=== PATIENT | female | born 1960 | race Caucasian/White ===

== ENCOUNTER 2019-12-20 03:32 | Emergency (ER) | payer OTHER ==
[~2019-12-20] VITALS: Ht 172.7 cm; Wt 75.0 kg
[2019-12-20] MEDS ORDERED: NEURONTIN300 MG/CAP PO (04:02)
[2019-12-20] MEDS ORDERED: PROMETHEGAN25 MG RC (04:02)
[2019-12-20] MEDS ORDERED: ONDANSETRON ODT8 MG PO (04:02)
[2019-12-20] MEDS ORDERED: SYNTHROID0.075 MG PO (04:03)
[2019-12-20] MEDS ORDERED: MORPHINE S100 MG/5 M PO (04:03)
[2019-12-20] MEDS ORDERED: LIOTHYRONINE SO5 MCG PO (04:03)
[2019-12-20 04:38] LABS: HEMATOCRIT 45.3 % (37.0-47.0); HEMOGLOBIN 15.3 g/dL (12.5-16.0); MEAN CELL VOLUME 92 fl (78-100); MEAN CORPUSCULAR HEMOGLOBIN 31 pg (27-31); MEAN CORPUSCULAR HGB CONC 34 g/dL (33-37); MEAN PLATELET VOLUME 10.9 fl (7.4-10.4); PLATELET COUNT 286 K/mm3 (130-400); RED BLOOD COUNT 4.94 M/mm3 (4.10-5.30); RED CELL DISTRIBUTION WIDTH 15.1 % (11.5-14.5); WHITE BLOOD COUNT 9.2 K/mm3 (4.8-10.8)
[2019-12-20 04:42] LABS: POTASSIUM 3.7 mmol/L (3.5-5.1)
[2019-12-20 04:43] LABS: CALCIUM 9.6 mg/dL (8.3-10.5)
[2019-12-20 04:53] LABS: LYMPHOCYTE 13 % (20-51); MONOCYTE 4 % (3-10); NEUTROPHILS 83 % (42-75)
[2019-12-20 06:46] VITALS: BP 142/75
== END 2019-12-20 06:38 | disposition home or self-care (01) ==
LOC: ED 03:32
PROVIDERS: Family Medicine
DX: R11.2 Nausea with vomiting, unspecified (principal); C18.9 Malignant neoplasm of colon, unspecified
CPT/HCPCS: J2060; J2405; J2765; J7030

== ENCOUNTER → 2020-05-06 | Outpatient (CLI) | payer OTHER ==
[~2020-05-06] MED LIST: LIOTHYRONINE SO5 MCG PO; MORPHINE S100 MG/5 M PO; NEURONTIN300 MG/CAP PO; ONDANSETRON ODT8 MG PO; PROMETHEGAN25 MG RC; SYNTHROID0.075 MG PO
[2020-05-06 13:09] LABS: PH-URINE 5.5 (5.0 - 8.0); URINE APPEARANCE CLEAR; URINE BILIRUBIN NEGATIVE (NEGATIVE); URINE BLOOD NEGATIVE (NEGATIVE); URINE COLOR YELLOW; URINE GLUCOSE NEGATIVE (NEGATIVE); URINE KETONE NEGATIVE (NEGATIVE); URINE LEUKOCYTE ESTERASE TRACE (NEGATIVE); URINE NITRATE NEGATIVE (NEGATIVE); URINE PROTEIN(semi-quant) NEGATIVE (NEGATIVE); URINE UROBILINOGEN NORMAL (NORMAL)
== END ==
LOC: LAB 12:28
PROVIDERS: Urology
DX: Z01.89 Encounter for other specified special examinations (principal)